=== PATIENT | female | born 1985 | race Caucasian/White ===

== ENCOUNTER 2017-07-09 02:36 | Emergency (ER) | payer SELFPAY ==
[~2017-07-09] VITALS: Ht 160 cm; Wt 70.3 kg
[2017-07-09 03:16] VITALS: BP 133/93
[2017-07-09] MEDS ORDERED: IBUPROFEN 600 MG TAB PO ONE (03:30)
== END 2017-07-09 03:47 | disposition home or self-care (01) ==
LOC: ER 02:36
DX: H61.21 Impacted cerumen, right ear (principal); I10 Essential (primary) hypertension; F17.210 Nicotine dependence, cigarettes, uncomplicated

== ENCOUNTER 2019-08-05 17:06 | Emergency (ER) | payer SELFPAY ==
[~2019-08-05] VITALS: Ht 160 cm; Wt 68.0 kg
[2019-08-05 17:12] VITALS: BP 159/111
== END 2019-08-06 01:35 | disposition left against medical advice (07) ==
LOC: ER 17:18
DX: S93.402A Sprain of unspecified ligament of left ankle, initial encounter (principal); L03.116 Cellulitis of left lower limb; I10 Essential (primary) hypertension; F17.210 Nicotine dependence, cigarettes, uncomplicated; X58.XXXA Exposure to other specified factors, initial encounter; Y93.89 Activity, other specified; Y99.8 Other external cause status; Y92.89 Other specified places as the place of occurrence of the external cause

== ENCOUNTER 2024-09-01 18:18 | Emergency (ER) | payer MEDICAID, OTHER ==
[~2024-09-01] VITALS: Ht 160 cm; Wt 59.3 kg
[2024-09-01 18:43] VITALS: BP 159/109; PULSE 104; RESP 16; O2SAT 97
--- NOTE | 2024-09-01 18:46 | ED.PDOC ---
GI ASSESSMENT HPI Comments A 39 year old female presents to the ED with a chief complaint of blood in stool onset today. Patient states she noticed 2 diarrheal bowel movements with blood on paper and toilet, but the diarrhea is watery. Patient denies fever or nausea Chief Complaint: GI Bleed Time Seen by MD: 18:40 Reviewed Notes: Medications, Allergies Allergies: Coded Allergies: NO KNOWN ALLERGIES (Unverified , 07/09/17) Information Source: Patient Mode of Arrival: EMS Timing: Hours Duration: Since onset Prehospital treatment: None Stool: Other (firm) Severity: Moderate Recent: None Recent Hx of: None Pain Location: Periumbilical, None Associated sign and symptoms: Blood in Stool Past Medical History PAST MEDICAL HISTORY: HTN Surgical History: Denies all surgeries PARK NATURALIST History: No Pertinent PARK NATURALIST History Family History Family History: Reviewed,noncontributory to illness, No family hx of Cancer, No family hx of DM, No family hx of Heart audrey, No family hx of HTN, No family hx ofKidney audrey, No family hx of Liver audrey, No family hx of Lung audrey, No family hx of Stroke Social History Smoker: Cigarettes Alcohol: Denies ETOH Use Drugs: Methamphetamine Lives In: Home Constitutional: denies: chills, diaphoresis, fatigue, fever, malaise, sweats, weakness, others EENTM: denies: blurred vision, double vision, ear bleeding, ear discharge, ear drainage, ear pain, ear ringing, eye pain, eye redness, hearing loss, mouth pain, mouth swelling, nasal discharge, nose bleeding, nose congestion, nose pain, photophobia, tearing, throat pain, throat swelling, voice changes, others Respiratory: denies: cough, hemoptysis, orthopnea, SOB at rest, shortness of breath, SOB with excertion, stridor, wheezing, others Cardiovascular: denies: chest pain, dizzy spells, diaphoresis, Dyspnea on exertion, edema, irregular heart beat, left arm pain, lightheadedness, palpitations, PND, syncope, others Gastrointestinal: reports: blood streaked bowels; denies: abdomen distended, abdominal pain, constipated, diarrhea, dysphagia, difficulty swallowing, hematemesis, melena, nausea, poor appetite, poor fluid intake, rectal bleeding, rectal pain, vomiting, others Genitourinary: denies: abnormal vagina bleeding, burning, dyspareunia, dysuria, flank pain, frequency, hematuria, incontinence, pain, , vagina discharge, urgency, others Neurological: denies: dizziness, fainting, headache, left sided numbness, left sided weakness, numbness, paresthesia, pre-existing deficit, right sided numbness, right sided weakness, seizure, speech problems, tingling, tremors, weakness, others Musculoskeletal: denies: back pain, gout, joint pain, joint swelling, muscle pain, muscle stiffness, neck pain, others Integumetry: denies: bruises, change in color, change in hair/nails, dryness, laceration, lesions, lumps, rash, wounds, others Allergic/Immunocompromised: denies: Difficulty Healing, Frequent Infections, Hives, Itching, others Hematologic/Lymphatic: denies: anemia, blood clots, easy bleeding, easy bruising, swollen glands, others Endocrine: denies: excessive hunger, excessive sweating, excessive thirst, excessive urination, flushing, intolerance to cold, intolerance to heat, unexplained weight gain, unexplained weight loss, others Psychiatric: denies: anxiety, bipolar disorder, depression, hopeless, panic disorder, schizophrenia, sleepless, suicidal, others All Other Systems: Reviewed and Negative Physical Exam General Appearance: No Apparent Distress, Normal HEENT: Normal ENT Inspection, Pharynx Normal, TMs Normal Neck: Full Range of Motion, Non-Tender, Normal, Normal Inspection Respiratory: Chest Non-Tender, Lungs Clear, No Accessory Muscle Use, No Respiratory Distress, Normal Breath Sounds Cardiovascular: No Edema, No JVD, No Murmur, No Gallop, Normal Peripheral Pulses, Regular Rate/Rhythm Breast Exam: Deferred Gastrointestinal: No Organomegaly, Non Tender, No Pulsatile Mass, Normal Bowel Sounds, Soft, Other (guiacic negative, no lesions, no hemorrhoids, no fissures) Genitalia: Deferred Pelvic: Deferred Rectal: Deferred Extremities: No calf tenderness, Normal capillary refill, Normal inspection, Normal range of motion, Non-tender, No pedal edema Musculoskeletal : Apperance: Normal Neurologic: Alert, clinic physician director II-XII nml as Tested, No Motor Deficits, Normal Affect, Normal Mood, No Sensory Deficits Cerebellar Function: Normal Reflexes: Normal Skin: Dry, Normal Color, Warm Lymphatic: No Adenopathy Was a procedure done? Was a procedure done?: No GI differential Dx Differential Diagnosis: Gastritis/PUD, Gastroenteritis, GI hemorrhage, Inflammatory BD, Ischemic Bowel, Bacterial, Parasitic, Viral, Impaction X-Ray, Labs, Meds, VS Vital Signs Date Time Temp Pulse Resp B/P (MAP) Pulse Ox O2 Delivery O2 Flow Rate FiO2 09/01/24 18:43 98.0 104 16 159/109 (126) 97 Lab Test 09/01/24 18:50 Range/Units White Blood Count 5.9 4.4-10.8 10^3/uL Red Blood Count 4.90 4.0-5.20 10^6/uL Hemoglobin 14.0 12.2-16.2 g/dL Hematocrit 41.3 36.0-46.0 % Mean Corpuscular Volume 84.5 80.0-100.0 fL Mean Corpuscular Hemoglobin 28.5 28.0-32.0 pg Mean Corpuscular Hemoglobin Concent 33.8 32.0-36.0 g/dL Red Cell Distribution Width 14.2 11.8-14.3 % Platelet Count 254 140-450 10^3/uL Mean Platelet Volume 8.7 6.9-10.8 fL Neutrophils (%) (Auto) 65.1 37.0-80.0 % Lymphocytes (%) (Auto) 23.4 10.0-50.0 % Monocytes (%) (Auto) 7.5 0.0-12.0 % Eosinophils (%) (Auto) 3.7 0.0-7.0 % Basophils (%) (Auto) 0.3 0.0-2.0 % Neutrophils # (Auto) 3.8 1.6-8.6 10 ^3/uL Lymphocytes # (Auto) 1.4 0.4-5.4 10 ^3/uL Monocytes # (Auto) 0.4 0-1.3 10 ^3/uL Eosinophils # (Auto) 0.2 0-0.8 10 ^3/uL Basophils # (Auto) 0 0-0.2 10 ^3/uL Nucleated Red Blood Cells 0.1 % Sodium Level 142 136-145 mmol/L Potassium Level 3.9 3.5-5.1 mmol/L Chloride Level 105 98-107 mmol/L Carbon Dioxide Level 28 20-31 mmol/L Anion Gap 9 5-15 Blood Urea Nitrogen 13 9-23 mg/dL Creatinine 0.82 0.550-1.02 mg/dL Glomerular Filtration Rate Calc 94 >90 mL/min BUN/Creatinine Ratio 15.9 10.0-20.0 Serum Glucose 101 74-106 mg/dL Calcium Level 9.6 8.7-10.4 mg/dL Total Bilirubin 0.2 0.2-1.0 mg/dL Aspartate Amino Transferase (AST) 22 13-40 U/L Alanine Aminotransferase (ALT) 16 7-40 U/L Alkaline Phosphatase 88 46-116 U/L Total Protein 7.4 5.7-8.2 g/dL Albumin 4.7 3.2-4.8 g/dL Beta HCG, Quantitative 1.3 L 1.5-4.2 mIU/mL Time of 1ST Reevaluation: 19:10 Reevaluation 1ST: Unchanged Patient Education/Counseling: Diagnosis, Treatment, Prognosis Family Education/Counseling: No Family Present Additional Information I reviewed the following notes from patient's past medical encounters: The following tests were ordered, and results were reviewed by me: BETA HCG, CBC, CMP I discussed treatment and results with medical personnel and: patient pt has diarrhea which is watery, soft, nontender abdomen, normal labs and vss, normal rectal exam. she is not anemic, nor has pain, nor is showing signs of dehydration. she has not had any symptoms while here. she is stable for discharge. i will start her on imodium Departure 1 Departure Time of Disposition: 20:36 Impression: Primary Impression: Diarrhea Qualified Codes: R19.7 - Diarrhea, unspecified Additional Impression: Rectal bleed Disposition: HOME / SELF CARE / HOMELESS Condition: Good e-Prescriptions Loperamide Hcl (Imodium) 2 Mg Cp 2 MG PO BIDPRN PRN for 2 Days, #4 CAP Prov: HONG CHIN MD 09/01/24 Discharged With: Self Critical Care Note Critical Care Time?: No Stability Stability form required: No I personally scribed for HONG CHIN MD ([email or web address]) on 09/01/24 at 18:46. Electronically submitted by Melisa Gamez ([email or web address]). I personally scribed for HONG CHIN MD ([email or web address]) on 09/01/24 at 18:52. Electronically submitted by Melisa Gamez ([email or web address]). I personally scribed for HONG CHIN MD ([email or web address]) on 09/01/24 at 19:45. Electronically submitted by Melisa Gamez ([email or web address]). HONG CHIN MD Sep 01, 2024 18:46
[2024-09-01 19:15] LABS: Basophils # (auto) 0 10 ^3/uL (0-0.2); Basophils % (auto) 0.3 % (0.0-2.0); Eosinophils # (auto) 0.2 10 ^3/uL (0-0.8); Eosinophils % (auto) 3.7 % (0.0-7.0); Hematocrit 41.3 % (36.0-46.0); Lymphocytes # (auto) 1.4 10 ^3/uL (0.4-5.4); Lymphocytes % (auto) 23.4 % (10.0-50.0); Mean Corpuscular Hemoglobin 28.5 pg (28.0-32.0); Mean Corpuscular Hgb Conc. 33.8 g/dL (32.0-36.0); Mean Corpuscular Volume 84.5 fL (80.0-100.0); Monocytes # (auto) 0.4 10 ^3/uL (0-1.3); Monocytes % (auto) 7.5 % (0.0-12.0); Neutrophils # (auto) 3.8 10 ^3/uL (1.6-8.6); Neutrophils % (auto) 65.1 % (37.0-80.0); Nucleated Red Blood Cells % 0.1 %; Platelet Count (auto) 254 10^3/uL (140-450); Red Cell Distribution Width 14.2 % (11.8-14.3); White Blood Cell 5.9 10^3/uL (4.4-10.8)
[2024-09-01 19:24] LABS: Alanine Aminotransferase 16 U/L (7-40); Albumin 4.7 g/dL (3.2-4.8); Alkaline Phosphatase 88 U/L (46-116); Anion Gap 9 (5-15); Aspartate Aminotransferase 22 U/L (13-40); BUN/Creatinine Ratio 15.9 (10.0-20.0); Blood Urea Nitrogen 13 mg/dL (9-23); Calcium 9.6 mg/dL (8.7-10.4); Carbon Dioxide 28 mmol/L (20-31); Chloride 105 mmol/L (98-107); Glucose 101 mg/dL (74-106); Potassium 3.9 mmol/L (3.5-5.1); Sodium 142 mmol/L (136-145)
[2024-09-01 19:25] LABS: Total Protein 7.4 g/dL (5.7-8.2)
[2024-09-01 19:32] LABS: Bilirubin, Total 0.2 mg/dL (0.2-1.0)
[2024-09-01] MEDS ORDERED: LOPE2CAP16 PO (20:38)
== END 2024-09-01 21:11 | disposition home or self-care (01) ==
LOC: ER 18:18
DX: K92.1 Melena (principal); R10.2 Pelvic and perineal pain; R19.7 Diarrhea, unspecified; I10 Essential (primary) hypertension; F17.210 Nicotine dependence, cigarettes, uncomplicated; F15.90 Other stimulant use, unspecified, uncomplicated
CPT/HCPCS: 36415; 80053; 84702; 85025

== ENCOUNTER 2025-02-06 21:24 | Emergency (ER) | payer OTHER ==
[~2025-02-06] VITALS: Ht 160 cm; Wt 66.5 kg
[~2025-02-06 21:24] MED LIST: LOPE2CAP16 PO
[2025-02-06 23:45] VITALS: BP 139/90; PULSE 97; RESP 20; TEMP 98.3; O2SAT 97
--- NOTE | 2025-02-07 00:55 | ED.PDOC ---
Eye-HPI HPI Comments PATIENT C/O LEFT FACE SWELLING/PAIN STARTING THIS MORNING. PATIENT STATES SHE HAS A BAD TOOTH, LEFT UPPER MOLAR. Chief Complaint: Tooth Pain Time Seen by MD: 21:50 Reviewed Notes: Nurses Notes, Medications, Allergies Allergies: Coded Allergies: NO KNOWN ALLERGIES (Unverified , 07/09/17) Home Meds Active Scripts Clindamycin Hcl (Clindamycin Hcl) 300 Mg Cap, 300 MG PO QID for 7 Days, #28 CAP 0 Refills Prov:ROSA ISELA GASTON 02/08/25 Ibuprofen (Ibuprofen) 800 Mg Tab, 800 MG PO Q8HP PRN for 7 Days, #21 TAB Prov:QUENTINBRITNEY COMMERCIAL LOAN CLOSER 02/07/25 Amoxicillin & Pot Clavulanate (AUGMENTIN TABLET) 875 Mg Tb, 875 MG PO BID for 7 Days, #14 TAB Prov:BRITNEY SAAVEDRA COMMERCIAL LOAN CLOSER 02/07/25 Loperamide Hcl (Imodium) 2 Mg Cp, 2 MG PO BIDPRN PRN for 2 Days, #4 CAP Prov:HONG CHIN MD 09/01/24 Information Source: Patient Mode of Arrival: Ambulatory Past Medical History PAST MEDICAL HISTORY: HTN Surgical History: Denies all surgeries MARINE HABITAT RESOURCE SPECIALIST History: No Pertinent MARINE HABITAT RESOURCE SPECIALIST History Family History Family History: Reviewed,noncontributory to illness, No family hx of Cancer, No family hx of DM, No family hx of Heart audrey, No family hx of HTN, No family hx ofKidney audrey, No family hx of Liver audrey, No family hx of Lung audrey, No family hx of Stroke Social History Smoker: Cigarettes Alcohol: Denies ETOH Use Drugs: Methamphetamine Lives In: Home Constitutional: denies: chills, diaphoresis, fatigue, fever, malaise, sweats, weakness, others EENTM: reports: others (dental pain); denies: blurred vision, double vision, ear bleeding, ear discharge, ear drainage, ear pain, ear ringing, eye pain, eye redness, hearing loss, mouth pain, mouth swelling, nasal discharge, nose bleeding, nose congestion, nose pain, photophobia, tearing, throat pain, throat swelling, voice changes Respiratory: denies: cough, hemoptysis, orthopnea, SOB at rest, shortness of breath, SOB with excertion, stridor, wheezing, others Cardiovascular: denies: chest pain, dizzy spells, diaphoresis, Dyspnea on exertion, edema, irregular heart beat, left arm pain, lightheadedness, palpitations, PND, syncope, others Gastrointestinal: denies: abdomen distended, abdominal pain, blood streaked bowels, constipated, diarrhea, dysphagia, difficulty swallowing, hematemesis, melena, nausea, poor appetite, poor fluid intake, rectal bleeding, rectal pain, vomiting, others Genitourinary: denies: abnormal vagina bleeding, burning, dyspareunia, dysuria, flank pain, frequency, hematuria, incontinence, pain, , vagina discharge, urgency, others Neurological: denies: dizziness, fainting, headache, left sided numbness, left sided weakness, numbness, paresthesia, pre-existing deficit, right sided numbness, right sided weakness, seizure, speech problems, tingling, tremors, weakness, others Musculoskeletal: denies: back pain, gout, joint pain, joint swelling, muscle pain, muscle stiffness, neck pain, others Integumetry: denies: bruises, change in color, change in hair/nails, dryness, laceration, lesions, lumps, rash, wounds, others Allergic/Immunocompromised: denies: Difficulty Healing, Frequent Infections, Hives, Itching, others Hematologic/Lymphatic: denies: anemia, blood clots, easy bleeding, easy bruising, swollen glands, others Endocrine: denies: excessive hunger, excessive sweating, excessive thirst, excessive urination, flushing, intolerance to cold, intolerance to heat, unexplained weight gain, unexplained weight loss, others Psychiatric: denies: anxiety, bipolar disorder, depression, hopeless, panic disorder, schizophrenia, sleepless, suicidal, others Physical Exam General Appearance: No Apparent Distress, Normal HEENT: Normal ENT Inspection, Pharynx Normal, TMs Normal, Other Neck: Full Range of Motion, Non-Tender Respiratory: Lungs Clear, No Respiratory Distress, Normal Breath Sounds Cardiovascular: No Murmur, Normal Peripheral Pulses, Regular Rate/Rhythm Breast Exam: Deferred Gastrointestinal: Non Tender, Soft Genitalia: Deferred Pelvic: Deferred Rectal: Deferred Extremities: Normal range of motion Musculoskeletal : Apperance: Normal Neurologic: Alert, No Motor Deficits, Normal Affect, Normal Mood, No Sensory Deficits Cerebellar Function: Normal Reflexes: Normal Skin: Dry, Normal Color, Warm Lymphatic: No Adenopathy Was a procedure done? Was a procedure done?: No EENT DIFF Eye: N/A Sore Throat: David's Angina X-Ray, Labs, Meds, VS Vital Signs Date Time Temp Pulse Resp B/P (MAP) Pulse Ox O2 Delivery O2 Flow Rate FiO2 02/07/25 01:38 Room Air* 0 21 02/06/25 23:45 98.3 97 20 139/90 (106) 97 98.3 02/06/25 21:30 97.8 100 18 144/61 (88) 99 97.8 Time of 1ST Reevaluation: 23:00 Reevaluation 1ST: Unchanged Time of 2ND Reevaluation: 01:50 Reevaluation 2ND: Improved Patient Education/Counseling: Diagnosis, Treatment, Prognosis, Need For Follow Up Family Education/Counseling: No Family Present Departure 1 Departure Time of Disposition: 01:52 Impression: Primary Impression: Dental infection Disposition: HOME / SELF CARE / HOMELESS Condition: Stable e-Prescriptions Ibuprofen (Ibuprofen) 800 Mg Tab 800 MG PO Q8HP PRN for 7 Days, #21 TAB Prov: BRITNEY SAAVEDRA 02/07/25 Amoxicillin & Pot Clavulanate (AUGMENTIN TABLET) 875 Mg Tb 875 MG PO BID for 7 Days, #14 TAB Prov: BRITNEY SAAVEDRA 02/07/25 Discharged With: Relative Critical Care Note Critical Care Time?: No Stability Stability form required: BRITNEY Sofia Feb 07, 2025 00:55
[2025-02-07] MEDS: cefTRIAXone SOD 1,000 MG VL IM ONE (01:38)
[2025-02-07] MEDS: BENZOCAINE (DENTAL) 20 % SPRAY 60ML MT ONE (01:39)
[2025-02-07] MEDS: KETOROLAC TROMETH 60MG/2ML VIAL IM ONE (01:39)
[2025-02-07] MEDS ORDERED: IBUP-1456 PO (01:53)
[2025-02-07] MEDS ORDERED: AUG875T PO (01:53)
[2025-02-08] MEDS ORDERED: CLIN1CAP70 PO (02:18)
== END 2025-02-07 02:00 | disposition home or self-care (01) ==
LOC: ER 21:24
DX: K04.7 Periapical abscess without sinus (principal); F17.210 Nicotine dependence, cigarettes, uncomplicated; I10 Essential (primary) hypertension; F15.90 Other stimulant use, unspecified, uncomplicated; Z79.899 Other long term (current) drug therapy
CPT/HCPCS: 96372; 99284; J0696; J1885

== ENCOUNTER 2025-02-08 00:47 | Emergency (ER) | payer OTHER ==
[~2025-02-08] VITALS: Ht 160 cm; Wt 65.5 kg
[~2025-02-08 00:47] MED LIST changes: +AUG875T PO; +IBUP-1456 PO
[2025-02-08] MEDS ORDERED: CLIN1CAP70 PO (02:18)
[2025-02-08] MEDS: SODIUM CHLORIDE 0.9% 1,000 ML IV ONE (02:19)
[2025-02-08] MEDS: cefTRIAXone 1GM/50ML D5W 50 ML IV ONE (02:19)
--- NOTE | 2025-02-08 02:19 | ED.PDOC ---
Eye-HPI HPI Comments 39 YEAR OLD FEMALE PRESENTS TO ER WITH COMPLAINTS OF TOOTHACHE X 2 DAYS. PATIENT STATES SHE'S BEEN EXPERIENCING LEFT UPPER TOOTHACHE WITH ASSOCIATED LEFT SIDED FACIAL SWELLING 2 DAYS AGO. NOTES THAT SHE WAS SEEN AND DISCHARGED IN ER HERE YESTERDAY FOR HER SYMPTOMS AND PRESCRIBED AUGMENTIN ANTIBIOTICS FOR A DENTAL INFECTION THAT SHE'S BEEN TAKING PRESCRIBED. REPORTS THAT THE FACIAL SWELLING APPEARED TO GET BETTER BUT IS STILL PRESENT AND HAS FELT LIKE SHE'S BEEN RUNNING A FEVER X 1 DAY, DENYING CHECKING HER TEMPERATURE AT HOME. PATIENT PRESENTS TO FAST-TRACK AMBULATORY ON ARRIVAL, A-FEBRILE, WITH STEADY GAIT, IN NO DISTRESS. DENIES HEADACHE, BODY ACHES, CHILLS, NECK PAIN OR ANY FURTHER SYMPTOMS/COMPLAIN TS Chief Complaint: Tooth Pain Time Seen by MD: 00:51 Primary Care Provider: ASTER Ryan Notes: Nurses Notes, Medications, Allergies Allergies: Coded Allergies: NO KNOWN ALLERGIES (Unverified , 07/09/17) Home Meds Active Scripts Clindamycin Hcl (Clindamycin Hcl) 300 Mg Cap, 300 MG PO QID for 7 Days, #28 CAP 0 Refills Prov:ROSA ISELA GASTON 02/08/25 Ibuprofen (Ibuprofen) 800 Mg Tab, 800 MG PO Q8HP PRN for 7 Days, #21 TAB Prov:BRITNEY SAAVEDRA CLAIM CLERK 02/07/25 Amoxicillin & Pot Clavulanate (AUGMENTIN TABLET) 875 Mg Tb, 875 MG PO BID for 7 Days, #14 TAB Prov:BRITNEY SAAVEDRA 02/07/25 Loperamide Hcl (Imodium) 2 Mg Cp, 2 MG PO BIDPRN PRN for 2 Days, #4 CAP Prov:HONG CHIN MD 09/01/24 Information Source: Patient Mode of Arrival: Ambulatory Past Medical History PAST MEDICAL HISTORY: HTN Surgical History: Denies all surgeries OLIVE BRINE TESTER History: No Pertinent OLIVE BRINE TESTER History Family History Family History: Unknown Social History Smoker: Cigarettes, Less Than 1 Pack/Day Alcohol: Denies ETOH Use Drugs: Denies Drug Use Lives In: Home Constitutional: denies: chills, diaphoresis, fatigue, fever, malaise, sweats, weakness, others EENTM: reports: others ( STATED IN HPI) Respiratory: denies: cough, hemoptysis, orthopnea, SOB at rest, shortness of breath, SOB with excertion, stridor, wheezing, others Cardiovascular: denies: chest pain, dizzy spells, diaphoresis, Dyspnea on exertion, edema, irregular heart beat, left arm pain, lightheadedness, palpitations, PND, syncope, others Gastrointestinal: denies: abdomen distended, abdominal pain, blood streaked bowels, constipated, diarrhea, dysphagia, difficulty swallowing, hematemesis, melena, nausea, poor appetite, poor fluid intake, rectal bleeding, rectal pain, vomiting, others Genitourinary: denies: abnormal vagina bleeding, burning, dyspareunia, dysuria, flank pain, frequency, hematuria, incontinence, pain, , vagina discharge, urgency, others Neurological: denies: dizziness, fainting, headache, left sided numbness, left sided weakness, numbness, paresthesia, pre-existing deficit, right sided numbness, right sided weakness, seizure, speech problems, tingling, tremors, weakness, others Musculoskeletal: denies: back pain, gout, joint pain, joint swelling, muscle pain, muscle stiffness, neck pain, others Integumetry: denies: bruises, change in color, change in hair/nails, dryness, laceration, lesions, lumps, rash, wounds, others Allergic/Immunocompromised: denies: Difficulty Healing, Frequent Infections, Hives, Itching, others Hematologic/Lymphatic: denies: anemia, blood clots, easy bleeding, easy bruising, swollen glands, others Endocrine: denies: excessive hunger, excessive sweating, excessive thirst, excessive urination, flushing, intolerance to cold, intolerance to heat, unexplained weight gain, unexplained weight loss, others Psychiatric: denies: anxiety, bipolar disorder, depression, hopeless, panic disorder, schizophrenia, sleepless, suicidal, others Physical Exam General Appearance: No Apparent Distress HEENT: PERRL/EOMI, Pharynx Normal, TMs Normal, Other (MILD SWELLING/ERYTHEMA NOTED SURROUNDING GUMS OF LEFT UPPER WISDOM TOOTH WITHOUT BLEEDING/DRAINAGE. MILD LEFT SIDED FACIAL SWELLING ALSO APPRECIATED. NO FURTHER SKIN CHANGES NOTED) Neck: Full Range of Motion, Non-Tender, Normal Respiratory: Chest Non-Tender, Lungs Clear, No Accessory Muscle Use, No Respiratory Distress, Normal Breath Sounds Cardiovascular: No Murmur, No Gallop, Regular Rate/Rhythm Breast Exam: Deferred Gastrointestinal: NOT DONE Genitalia: Deferred Pelvic: Deferred Rectal: Deferred Extremities: Normal capillary refill, Normal range of motion Neurologic: Alert, slurry control operator helper II-XII nml as Tested, No Motor Deficits, Normal Affect, Normal Mood, No Sensory Deficits Cerebellar Function: Normal Reflexes: Normal Skin: Dry, Normal Color, Warm Lymphatic: No Adenopathy Was a procedure done? Was a procedure done?: No Sedation Sedation?: No EENT DIFF Eye: N/A Mouth: Thrush, Other (SYDNI'S ANGINA, LEMIERRE'S SYNDROME, FRACTURED TOOTH) X-Ray, Labs, Meds, VS Vital Signs Date Time Temp Pulse Resp B/P (MAP) Pulse Ox O2 Delivery O2 Flow Rate FiO2 02/08/25 03:11 98.7 89 17 118/69 (85) 98 98.7 02/08/25 03:10 98.7 02/08/25 02:20 98.9 02/08/25 01:40 98.9 125 20 131/89 (103) 97 98.9 02/08/25 01:40 Room Air* 0 21 02/08/25 01:16 99.6 125 20 131/89 (103) 97 99.6 Current Medications Medications (Trade) Dose Ordered Sig/Guzman Route Start Time Stop Time Status Last Admin Clindamycin Phosphate 50 ml @ 50 mls/hr ONCE ONCE IV 02/08/25 01:45 02/08/25 02:44 DC 02/08/25 02:36 Ceftriaxone Sodium 50 ml @ 100 mls/hr ONCE ONCE IV 02/08/25 01:45 02/08/25 02:14 DC 02/08/25 02:19 Acetaminophen (Tylenol Tablet) 650 mg ONCE ONCE PO 02/08/25 01:45 02/08/25 01:46 DC 02/08/25 02:20 Sodium Chloride 1,000 ml @ 1,000 mls/hr Q1H ONCE IV 02/08/25 01:45 02/08/25 02:44 DC 02/08/25 02:19 Methylprednisolone Sodium Succinate (Solu Medrol) 125 mg ONCE ONCE IV 02/08/25 02:00 02/08/25 02:01 DC 02/08/25 02:21 HEP-LOCK IV ORDERED CLINDAMYCIN 900 MG IV ORDERED ROCEPHIN 1 G IV ORDERED SOLU-MEDROL 125 MG IV ORDERED NS 1 L IV ORDERED TYLENOL 650 MG PO ORDERED PATIENT HAD IMPROVEMENT IN SYMPTOMS AND NON-TOXIC APPEARING/IN NO DISTRESS PRIOR TO DISCHARGE ADVISED TO FOLLOW UP IN 12 HOURS ADVISED TO DISCONTINUE AUGMENTIN ANTIBIOTICS AND TAKE THE FOLLOWING ANTIBIOTICS BELOW PRESCRIBED SMOKING CESSATION DISCUSSED AND ADVISED ADVISED TO FOLLOW UP WITH PCP AND DENTIST IN 1-2 DAYS PATIENT VERBALIZED UNDERSTANDING AND AGREEABLE WITH CURRENT PLAN OF CARE ADVISED TO RETURN TO ER IMMEDIATELY IF SYMPTOMS WORSEN Time of 1ST Reevaluation: 02:14 Reevaluation 1ST: N/A Time of 2ND Reevaluation: 03:08 Reevaluation 2ND: Improved Patient Education/Counseling: Diagnosis, Treatment, Prognosis, Need For Follow Up Family Education/Counseling: No Family Present Departure 1 Departure Time of Disposition: 03:10 Impression: Primary Impression: Dental infection Disposition: 01 HOME / SELF CARE / HOMELESS Condition: Stable e-Prescriptions Clindamycin Hcl (Clindamycin Hcl) 300 Mg Cap 300 MG PO QID for 7 Days, #28 CAP 0 Refills Prov: ROSA ISELA GASTON 02/08/25 Discharged With: Self Critical Care Note Critical Care Time?: No Stability Stability form required: No Heart Score Heart Score: Heart Score Response (Comments) Value History N/A 0 EKG N/A 0 Age N/A 0 Risk Factors N/A 0 Troponin N/A 0 Total 0 ROSA ISELA GASTON Feb 08, 2025 02:19
[2025-02-08] MEDS: ACETAMINOPHEN 325 MG TAB PO ONE (02:20)
[2025-02-08] MEDS: methylPREDNISolone SOD SUCC 125 MG/2 ML VL IV ONE (02:21)
[2025-02-08] MEDS: CLINDAMYCIN 900MG IV 50 ML IV ONE (02:36)
[2025-02-08 03:11] VITALS: BP 118/69; PULSE 89; RESP 17; TEMP 98.7; O2SAT 98
== END 2025-02-08 03:22 | disposition home or self-care (01) ==
LOC: ER 00:56
DX: K04.7 Periapical abscess without sinus (principal); F17.210 Nicotine dependence, cigarettes, uncomplicated; I10 Essential (primary) hypertension; Z79.899 Other long term (current) drug therapy
CPT/HCPCS: 96365; 96368; 96375; 99284; J0696; J2919; J3490; J7030

== ENCOUNTER 2025-02-10 01:03 | Emergency (ER) | payer OTHER ==
[~2025-02-10] VITALS: Ht 160 cm; Wt 61.0 kg
[~2025-02-10 01:03] MED LIST changes: +CLIN1CAP70 PO
[2025-02-10 02:03] VITALS: BP 154/104; PULSE 113; RESP 16; O2SAT 97
--- NOTE | 2025-02-10 02:03 | ED.PDOC ---
Eye-HPI HPI Comments 39 YEAR OLD FEMALE PRESENTS TO ER WITH COMPLAINTS OF TOOTHACHE X 4 DAYS. PATIENT STATES SHE'S STARTED EXPERIENCING LEFT UPPER TOOTHACHE WITH ASSOCIATED LEFT SIDED FACIAL SWELLING 4 DAYS AGO. NOTES THAT SHE WAS SEEN AND DISCHARGED IN ER HERE 2 DAYS AGO AND PRESCRIBED CLINDAMYCIN ANTIBIOTICS FOR A DENTAL INFECTION THAT SHE'S BEEN TAKING PRESCRIBED. REPORTS THAT HER FACIAL SWELLING HAS GOTTEN BETTER BUT IS STILL PRESENT AND HAS NOT YET FOLLOWED-UP WITH A DENTIST. SHE RATES HER CURRENT LEFT UPPER TOOTHACHE PAIN A 10/10 WITH RADIATION TOWARDS THE LEFT SIDE OF HER FACE. PATIENT PRESENTS TO FAST-TRACK AMBULATORY ON ARRIVAL, A-FEBRILE, WITH STEADY GAIT, IN NO DISTRESS AND IS NOTED TO HAVE IMPROVEMENT OF LEFT SIDED FACIAL SWELLING SINCE LAST ER VISIT. DENIES FEVER, HEADACHE, BODY ACHES, CHILLS, NECK PAIN OR ANY FURTHER SYMPTOMS/COMPLAINTS Chief Complaint: Abscess Time Seen by MD: 01:23 Primary Care Provider: ASTER Reviewed Notes: Nurses Notes, Medications, Allergies Allergies: Coded Allergies: NO KNOWN ALLERGIES (Unverified , 07/09/17) Home Meds Active Scripts Clindamycin Hcl (Clindamycin Hcl) 300 Mg Cap, 300 MG PO QID for 7 Days, #28 CAP 0 Refills Prov:ROSA ISELA GASTON 02/08/25 Ibuprofen (Ibuprofen) 800 Mg Tab, 800 MG PO Q8HP PRN for 7 Days, #21 TAB Prov:BRITNEY SAAVEDRA SITE CONTROLLER 02/07/25 Amoxicillin & Pot Clavulanate (AUGMENTIN TABLET) 875 Mg Tb, 875 MG PO BID for 7 Days, #14 TAB Prov:BRITNEY SAAVEDRA 25 Loperamide Hcl (Imodium) 2 Mg Cp, 2 MG PO BIDPRN PRN for 2 Days, #4 CAP Prov:HONG CHIN MD 09/01/24 Information Source: Patient Mode of Arrival: Ambulatory Past Medical History PAST MEDICAL HISTORY: HTN Surgical History: Denies all surgeries SERVER DEVELOPER History: No Pertinent SERVER DEVELOPER History Family History Family History: Unknown Social History Smoker: Cigarettes, Less Than 1 Pack/Day Alcohol: Denies ETOH Use Drugs: Denies Drug Use Lives In: Home Constitutional: denies: chills, diaphoresis, fatigue, fever, malaise, sweats, weakness, others EENTM: reports: others (As stated in HPI) Respiratory: denies: cough, hemoptysis, orthopnea, SOB at rest, shortness of breath, SOB with excertion, stridor, wheezing, others Cardiovascular: denies: chest pain, dizzy spells, diaphoresis, Dyspnea on exertion, edema, irregular heart beat, left arm pain, lightheadedness, palpitations, PND, syncope, others Gastrointestinal: denies: abdomen distended, abdominal pain, blood streaked bowels, constipated, diarrhea, dysphagia, difficulty swallowing, hematemesis, melena, nausea, poor appetite, poor fluid intake, rectal bleeding, rectal pain, vomiting, others Genitourinary: denies: abnormal vagina bleeding, burning, dyspareunia, dysuria, flank pain, frequency, hematuria, incontinence, pain, , vagina discharge, urgency, others Neurological: denies: dizziness, fainting, headache, left sided numbness, left sided weakness, numbness, paresthesia, pre-existing deficit, right sided numbness, right sided weakness, seizure, speech problems, tingling, tremors, weakness, others Musculoskeletal: denies: back pain, gout, joint pain, joint swelling, muscle pain, muscle stiffness, neck pain, others Integumetry: reports: others (As stated in HPI) Allergic/Immunocompromised: denies: Difficulty Healing, Frequent Infections, Hives, Itching, others Hematologic/Lymphatic: denies: anemia, blood clots, easy bleeding, easy bruising, swollen glands, others Endocrine: denies: excessive hunger, excessive sweating, excessive thirst, excessive urination, flushing, intolerance to cold, intolerance to heat, unexplained weight gain, unexplained weight loss, others Psychiatric: denies: anxiety, bipolar disorder, depression, hopeless, panic disorder, schizophrenia, sleepless, suicidal, others Physical Exam General Appearance: No Apparent Distress, Normal HEENT: PERRL/EOMI, Pharynx Normal, TMs Normal, Other (MILD SWELLING/ERYTHEMA NO LUPIS SURROUNDING GUMS OF LEFT UPPER WISDOM TOOTH WITHOUT BLEEDING/DRAINAGE. MINIMAL LEFT SIDED FACIAL SWELLING ALSO APPRECIATED/IMPROVED SINCE LAST ER VISIT. NO FURTHER SKIN CHANGES NOTED) Neck: Full Range of Motion, Non-Tender, Normal Respiratory: Chest Non-Tender, Lungs Clear, No Accessory Muscle Use, No Respiratory Distress, Normal Breath Sounds Cardiovascular: No Murmur, No Gallop, Regular Rate/Rhythm Breast Exam: Deferred Gastrointestinal: NOT DONE Genitalia: Deferred Pelvic: Deferred Rectal: Deferred Extremities: Normal capillary refill, Normal range of motion Neurologic: Alert, nurses educator II-XII nml as Tested, No Motor Deficits, Normal Affect, Normal Mood, No Sensory Deficits Cerebellar Function: Normal Reflexes: Normal Skin: Dry, Normal Color, Warm Lymphatic: No Adenopathy Was a procedure done? Was a procedure done?: No Sedation Sedation?: No EENT DIFF Eye: N/A Mouth: Thrush, Other (SYDNI'S ANGINA, DENTAL ABSCESS) X-Ray, Labs, Meds, VS Vital Signs Date Time Temp Pulse Resp B/P (MAP) Pulse Ox O2 Delivery O2 Flow Rate FiO2 02/10/25 02:03 113 16 97 Room Air 02/10/25 02:03 99.0 113 16 154/104 (121) 97 99.0 02/10/25 01:22 99.0 113 16 154/104 (121) 97 99.0 Current Medications Medications (Trade) Dose Ordered Sig/Guzman Route Start Time Stop Time Status Last Admin Acetaminophen (Tylenol Tablet) 650 mg ONCE ONCE PO 02/10/25 02:15 02/10/25 02:16 02/10/25 02:09 HEP-LOCK IV ORDERED CLINDAMYCIN 600 MG IV ORDERED ROCEPHIN 1 G IV ORDERED SOLU-MEDROL 125 MG IV ORDERED TYLENOL 650 MG P.O. ORDERED PREVIOUS CHART VISITS REVIEWED PATIENT HAD IMPROVEMENT IN SYMPTOMS, WELL APPEARING AND IN NO DISTRESS PRIOR TO DISCHARGE SMOKING CESSATION DISCUSSED AND ADVISED PATIENT PROVIDED INFORMATION WITH REGARDS TO LOCAL DENTISTS AND ADVISED ON STRI CT FOLLOW-UP WITH A DENTIST IN 1-2 DAYS ADVISED TO FOLLOW UP WITH PCP IN 1-2 DAYS PATIENT VERBALIZED UNDERSTANDING AND AGREEABLE WITH CURRENT PLAN OF CARE ADVISED TO RETURN TO ER IMMEDIATELY IF SYMPTOMS WORSEN Time of 1ST Reevaluation: 01:40 Reevaluation 1ST: N/A Patient Education/Counseling: Diagnosis, Treatment, Prognosis, Need For Follow Up Family Education/Counseling: No Family Present Departure 1 Departure Time of Disposition: 02:02 Impression: Primary Impression: Dental infection Disposition: HOME / SELF CARE / HOMELESS Condition: Stable Discharged With: Self Critical Care Note Critical Care Time?: No Stability Stability form required: No Heart Score Heart Score: Heart Score Response (Comments) Value History N/A 0 EKG N/A 0 Age N/A 0 Risk Factors N/A 0 Troponin N/A 0 Total 0 ROSA ISELA GASTON Feb 10, 2025 02:03
[2025-02-10] MEDS: ACETAMINOPHEN 325 MG TAB PO ONE (02:09)
[2025-02-10] MEDS: methylPREDNISolone SOD SUCC 125 MG/2 ML VL IV ONE (02:23)
[2025-02-10] MEDS: cefTRIAXone 1GM/50ML D5W 50 ML IV ONE (02:23)
[2025-02-10] MEDS: CLINDAMYCIN 600MG IV 50 ML IV ONE (02:40)
[2025-02-10 04:21] VITALS: TEMP 98.4
== END 2025-02-10 04:52 | disposition home or self-care (01) ==
LOC: ER 01:03
DX: K04.7 Periapical abscess without sinus (principal); F17.210 Nicotine dependence, cigarettes, uncomplicated; I10 Essential (primary) hypertension; Z79.899 Other long term (current) drug therapy
CPT/HCPCS: 96365; 96368; 96375; 99284; J0696; J2919; J3490